=== PATIENT | female | born 1985 | race Caucasian/White ===

== ENCOUNTER 2018-04-11 09:29 | Inpatient (IN) | payer OTHER ==
[~2018-04-11] VITALS: Ht 170.2 cm; Wt 98.6 kg
[2018-04-11] MEDS ORDERED: D5%-LACTATED RINGERS 1,000 ML IV SCH (09:50)
[2018-04-11] MEDS ORDERED: OXYTOCIN 30U/ 0.9% NaCL 500ML 500 ML IV PRN (09:50)
[2018-04-11] MEDS ORDERED: OXYTOCIN 30U/ 0.9% NaCL 500ML 500 ML IV ONE (09:50)
[2018-04-11] MEDS ORDERED: NEWBORN KIT ONE (09:56)
[2018-04-11] MEDS ORDERED: MISOPROSTOL 200 MCG TABLET ONE (09:56)
[2018-04-11] MEDS ORDERED: LIDOCAINE/PF 1%, 30ML ONE (09:56)
[2018-04-11] MEDS ORDERED: OXYTOCIN 30U/ 0.9% NaCL 500ML 500 ML ONE (09:57)
[2018-04-11] MEDS ORDERED: FENTANYL PF 100 MCG/2ML IV PRN (10:00)
[2018-04-11] MEDS ORDERED: PENICILLIN GK 5,000,000 UNITS in SODIUM CHLORIDE 0.9% 100 ML IVPB ONE (10:00)
[2018-04-11] MEDS ORDERED: SODIUM CITRATE/CITRIC ACID 30 ML UDC PO PRN (10:00)
[2018-04-11] MEDS ORDERED: FENTANYL PF 100 MCG/2ML IVPush PRN (10:00)
[2018-04-11] MEDS ORDERED: BETAMETHASONE 6 MG/ML, 5ML IM ONE ×2 (10:00→10:02)
[2018-04-11] MEDS ORDERED: ONDANSETRON ODT 4 MG PO PRN (10:00)
[2018-04-11] MEDS ORDERED: METOCLOPRAMIDE 5 MG/ML, 2ML IVPush PRN (10:00)
[2018-04-11] MEDS ORDERED: TERBUTALINE 1 MG/ML, 1ML IVPush PRN (10:00)
[2018-04-11] MEDS: LACTATED RINGERS 1,000 ML IV SCH ×3 (10:11→16:34)
[2018-04-11 10:38] LABS: BASOPHILS # (AUTO) 0.03 x10^3/uL (0-0.1); BASOPHILS % (AUTO) 0 % (0-1); EOSINOPHILS # (AUTO) 0.09 x10^3/uL (0-0.4); EOSINOPHILS % (AUTO) 1 % (1-7); LYMPHOCYTES # (AUTO) 2.26 x10^3/uL (1-3.4); LYMPHOCYTES % (AUTO) 20 % (22-44); MD NO; MEAN CORPUSCULAR HEMOGLOBIN 29.5 pg (27.0-34.8); MEAN CORPUSCULAR HGB CONC 33.8 g/dL (32.4-35.8); MEAN CORPUSCULAR VOLUME 87.4 fL (80-100); MEAN PLATELET VOLUME 9.1 fL (7.4-10.4); MONOCYTES # (AUTO) 0.77 x10^3/uL (0.2-0.8); MONOCYTES % (AUTO) 7 % (2-9); NEUTROPHILS # (AUTO) 7.98 x10^3/uL (1.8-6.8); NEUTROPHILS % (AUTO) 72 % (42-75); PLATELET COUNT 248 x10^3/uL (130-400); RED BLOOD COUNT 4.01 x10^6/uL (3.82-5.3); RED CELL DISTRIBUTION WIDTH 13.2 % (9.6-15.2)
[2018-04-11 10:54] VITALS: BP 124/66
[2018-04-11] MEDS ORDERED: FENTANYL PF 100 MCG/2ML ONE (12:24)
[2018-04-11] MEDS ORDERED: BUPIVACAINE 0.25% ONE (13:48)
[2018-04-11] MEDS ORDERED: FENTANYL/BUPIV./NS/PF 250 ML EPIDCONT ONE (13:48)
[2018-04-11] MEDS ORDERED: PENICILLIN GK 2,500,000 UNITS in DEXTROSE 5% 100 ML IVPB SCH (14:00)
[2018-04-11] MEDS: OXYTOCIN 30U/ 0.9% NaCL 500ML 500 ML IV SCH ×7 (16:03→23:13)
[2018-04-11] MEDS ORDERED: MISOPROSTOL 200 MCG TABLET PR PRN (16:30)
[2018-04-11] MEDS ORDERED: CALCIUM CARBONATE 500 MG TAB.CHEW PO PRN (16:30)
[2018-04-11] MEDS ORDERED: HYDROcodone/APAP 5/325 TABLET PO PRN (16:30)
[2018-04-11] MEDS ORDERED: ONDANSETRON 2MG/ML, 2ML IV PRN (16:30)
[2018-04-11] MEDS ORDERED: ACETAMINOPHEN 325 MG TABLET PO PRN ×2 (16:30)
[2018-04-11 18:10] VITALS: BP 100/62
[2018-04-11 19:45] VITALS: BP 124/68
[2018-04-11] MEDS: DOCUSATE 100 MG CAPSULE PO PRN (21:14)
[2018-04-11] MEDS ORDERED: OXYcodone IR 5MG TABLET PO PRN (23:30)
[2018-04-12] MEDS: OXYTOCIN 30U/ 0.9% NaCL 500ML 500 ML IV SCH ×4 (00:39→22:03)
[2018-04-12 01:00] VITALS: BP 95/56
[2018-04-12] MEDS: HYDROcodone/APAP 5/325 TABLET PO PRN ×5 (03:43→22:07)
[2018-04-12 04:40] VITALS: BP_SYST 110; BP_SYST 98; BP_DIAS 60; BP_DIAS 69
[2018-04-12 07:35] VITALS: BP 108/63
[2018-04-12] MEDS: PRENATAL VIT/IRON/FA 1 EACH TABLET PO SCH (07:44)
[2018-04-12] MEDS: DOCUSATE 100 MG CAPSULE PO PRN ×2 (07:44→22:07)
[2018-04-12 12:30] VITALS: BP 104/64
[2018-04-12 19:44] LABS: BASOPHILS # (AUTO) 0.03 x10^3/uL (0-0.1); BASOPHILS % (AUTO) 0 % (0-1); EOSINOPHILS # (AUTO) 0.02 x10^3/uL (0-0.4); EOSINOPHILS % (AUTO) 0 % (1-7); LYMPHOCYTES % (AUTO) 20 % (22-44); MEAN CORPUSCULAR HEMOGLOBIN 29.7 pg (27.0-34.8); MEAN CORPUSCULAR HGB CONC 33.5 g/dL (32.4-35.8); MEAN CORPUSCULAR VOLUME 88.5 fL (80-100); MEAN PLATELET VOLUME 9.1 fL (7.4-10.4); MONOCYTES # (AUTO) 1.15 x10^3/uL (0.2-0.8); MONOCYTES % (AUTO) 7 % (2-9); NEUTROPHILS # (AUTO) 12.05 x10^3/uL (1.8-6.8); NEUTROPHILS % (AUTO) 73 % (42-75); PLATELET COUNT 282 x10^3/uL (130-400); RED BLOOD COUNT 3.72 x10^6/uL (3.82-5.3); RED CELL DISTRIBUTION WIDTH 13.5 % (9.6-15.2)
[2018-04-12 19:45] LABS: MD NO
[2018-04-12 22:00] VITALS: BP 115/64
[2018-04-13] MEDS: OXYTOCIN 30U/ 0.9% NaCL 500ML 500 ML IV SCH (07:44)
[2018-04-13 07:49] VITALS: BP 113/69
[2018-04-13] MEDS: DOCUSATE 100 MG CAPSULE PO PRN (07:51)
[2018-04-13] MEDS: PRENATAL VIT/IRON/FA 1 EACH TABLET PO SCH (07:51)
[2018-04-13] MEDS ORDERED: DOCU-131 PO (13:27)
[2018-04-13] MEDS ORDERED: HYDR1TAB12 PO (13:27)
== END 2018-04-13 14:17 | disposition home or self-care (01) | DRG 775 ==
LOC: LDOP 09:29 → LDIP 09:51 → 2NW 17:41
PROVIDERS: ADMIT Obstetrics & Gynecology; ATTEND Obstetrics & Gynecology
PROC: 10E0XZZ Delivery of Products of Conception, External Approach (ICD-10-PCS; principal; 2018-04-11)
DX: O42.913 Preterm premature rupture of membranes, unspecified as to length of time between rupture and onset of labor, third trimester (principal); O99.214 Obesity complicating childbirth; E66.9 Obesity, unspecified; Z37.0 Single live birth; Z3A.36 36 weeks gestation of pregnancy; Z82.49 Family history of ischemic heart disease and other diseases of the circulatory system; Z83.3 Family history of diabetes mellitus; Z68.34 Body mass index [BMI] 34.0-34.9, adult
CPT/HCPCS: 36415; 82803; 85025; 86850; 86900; 87081; J0702; J2540; J3010; J2590; J7120